=== PATIENT | female | born 1995 | race Caucasian/White ===

== ENCOUNTER 2022-09-25 10:00 | Outpatient (RCR) | payer MEDICAID, SELFPAY | END 2022-10-14 16:08 | disposition home or self-care (01) | LOC: HO.PT 10:00 | PROVIDERS: PCP Family Medicine; Visit Provider Student in an Organized Health Care Education/Training Program | DX: R10.2 Pelvic and perineal pain (principal) | CPT/HCPCS: 97110; 97112; 97140; 97161 ==

== ENCOUNTER 2022-12-11 13:01 | Outpatient (REF) | payer MEDICAID, SELFPAY ==
[2022-12-11 15:14] LABS: C Reactive Protein < 0.04 mg/dL (< or = 0.50); Rheumatoid Factor < 13.0 IU/mL (<15.0)
[2022-12-11 15:39] LABS: Appearance Urine Clear; Color Urine Yellow; Glucose Urine UA Negative (Negative); Leukocyte Esterase Urine Negative (Negative); Nitrite Urine Negative (Negative); Urine Blood Negative (Negative); Urine Ketones Negative (Negative); Urine Protein Negative (Neg-Trace)
[2022-12-11 15:46] LABS: Bacteria Urine Trace (None Seen); Hyaline Casts Urine 0-2 /LPF (0-2); RBC Urine 0-2 /HPF (0-2); Squamous Epithelial Cell Urine 0-2 /HPF (0-2); WBC Urine 0-5 /HPF (0-5)
[2022-12-11 15:48] LABS: Erythrocyte Sedimentation Rate 2 MM/HR (0-20)
[2022-12-11 16:15] LABS: Creatinine Urine 71.05 mg/dL; Total Protein Urine Random < 7 mg/dL (<12)
[2022-12-12 20:59] LABS: Thyroglobulin Antibodies <1 IU/mL (< or = 1); Thyroid Peroxidase Antibodies <1 IU/mL (<9)
[2022-12-13 11:33] LABS: Complement C3 86 mg/dL (83-193)
[2022-12-15 11:58] LABS: Cyclic Citrullinated Peptide <16 UNITS
[2022-12-16 21:49] LABS: Beta-2 Glycoprotein IgA <2.0 U/mL (<20.0); Beta-2 Glycoprotein IgG <2.0 U/mL (<20.0); Beta-2 Glycoprotein IgM <2.0 U/mL (<20.0)
[2022-12-17 13:03] LABS: Centromere Protein A Ab <11 SI (<11); Centromere Protein B Ab <11 SI (<11); Fibrillarin Ab <11 SI (<11); PM SCL 100 Ab <11 SI (<11); PM SCL 75 Ab <11 SI (<11); RNA Polymerase III RP11 Ab <11 SI (<11); RNA Polymerase III RP155 Ab <11 SI (<11); SCL-70 Extractable Nuclear Ab <11 SI (<11); Th-To Ab <11 SI (<11); U1 SNRNP RNP 70KD <11 SI (<11); U1 SNRNP RNP A <11 SI (<11); U1 SNRNP RNP C <11 SI (<11)
[2022-12-17 14:10] LABS: DNAds, Crithidia Antibody Negative (Negative)
[2022-12-17 14:29] LABS: Anti DNA DS Antibody 1 IU/mL; Antibody to SS-A Antigen <1.0 NEG AI (<1.0 NEG); Antibody to SS-B Antigen <1.0 NEG AI (<1.0 NEG); SM/Ribonucleoprotein Ab <1.0 NEG AI (<1.0 NEG); Smith Protein <1.0 NEG AI (<1.0 NEG)
[2022-12-18 06:05] LABS: PTT (LAC) Screen 34 sec (<=40)
[2022-12-21 16:13] LABS: Cytosolic 5'nuc 1A Ab IgG <5 Units; Ej Ab <11 SI (<11); HMGCR Ab IgG <2 CU (<20); Jo-1 Ab <11 SI (<11); MDA5 Ab <11 SI (<11); Mi-2 alpha Ab <11 SI (<11); Mi-2 beta Ab <11 SI (<11); NXP-2 (MJ) Ab <11 SI (<11); Oj Ab <11 SI (<11); Pl-12 Ab <11 SI (<11); Pl-7 Ab <11 SI (<11); SRP Ab <11 SI (<11); TIF1 gamma Ab <11 SI (<11)
[2022-12-28 01:14] LABS: Cardiolipin IgG Ab <2.0 GPL-U/mL (<20.0); Cardiolipin IgM Ab <2.0 MPL-U/mL (<20.0)
== END 2022-12-11 13:02 | disposition home or self-care (01) ==
LOC: HO.LAB 13:01
PROVIDERS: PCP Physician Assistant; Visit Provider Student in an Organized Health Care Education/Training Program
DX: R76.8 Other specified abnormal immunological findings in serum (principal); D68.61 Antiphospholipid syndrome; M32.9 Systemic lupus erythematosus, unspecified; M06.9 Rheumatoid arthritis, unspecified; M34.9 Systemic sclerosis, unspecified; E07.9 Disorder of thyroid, unspecified; K21.9 Gastro-esophageal reflux disease without esophagitis; J45.909 Unspecified asthma, uncomplicated; Z11.59 Encounter for screening for other viral diseases; Z79.899 Other long term (current) drug therapy
CPT/HCPCS: 36415; 81001; 83516; 83520; 84156; 84182; 85597; 85613; 85652; 85730; 86140; 86146; 86147; 86160; 86200; 86225; 86235; 86255; 86376; 86431; 86800; 99202

== ENCOUNTER → 2023-01-13 14:17 | Outpatient (BNVA) | payer OTHER, SELFPAY | PROVIDERS: PCP Physician Assistant; Visit Provider Student in an Organized Health Care Education/Training Program | DX: R76.8 Other specified abnormal immunological findings in serum (principal) | CPT/HCPCS: 99212 ==